=== PATIENT | male | born 1935 | race Caucasian/White ===

== ENCOUNTER 2017-08-17 13:49 | Inpatient (IN) | payer MEDICARE ==
[~2017-08-17] VITALS: Ht 175.3 cm; Wt 70.1 kg
[2017-08-17 14:52] LABS: BASOPHILS 0.4 % (0-2); EOSINOPHILS 3.7 % (0-7); HEMATOCRIT 38.7 % (42.0-54.0); HEMOGLOBIN 13.2 g/dL (13.5-17.5); IMMATURE GRANULOCYTES 0.4 % (0-5); LYMPHOCYTES 14.4 % (15-50); MCH 32.5 pg (26.0-34.0); MCHC 34.1 g/dL (31.0-37.0); MCV 95.3 fL (80.0-100.0); MEAN PLATELET VOLUME 9.8 fL (7.4-10.4); MONOCYTES 10.1 % (2-11); PLATELET COUNT 128 10x3/uL (130-400); RBC 4.06 10x6/uL (4.20-6.10); RDW 13.2 % (11.5-14.5)
[2017-08-17 15:10] LABS: ALBUMIN 3.3 g/dL (3.4-5.0); ANION GAP 9.1 mmol/L (8-16); BILIRUBIN - TOTAL 0.44 mg/dL (0.2-1.3); CALCIUM 8.8 mg/dL (8.5-10.1); CARBON DIOXIDE 31.7 mmol/L (21.0-32.0); CREATININE - SERUM 1.8 mg/dL (0.6-1.3); POTASSIUM - SERUM 3.8 mmol/L (3.5-5.1); PROTEIN - SERUM 6.2 g/dL (6.4-8.2)
[2017-08-17 15:23] LABS: INR 0.98 (0.85-1.17); PROTIME 12.6 SECONDS (11.6-15.0)
[2017-08-17 15:29] LABS: APPEARANCE CLEAR (CLEAR); BILIRUBIN NEGATIVE (NEGATIVE); COLOR YELLOW (YELLOW); GLUCOSE NEGATIVE (NEGATIVE); KETONE NEGATIVE (NEGATIVE); NITRITE NEGATIVE (NEGATIVE); PROTEIN NEGATIVE (NEGATIVE); SPECIFIC GRAVITY 1.015 (1.005-1.020); UROBILINOGEN NORMAL (NORMAL)
[2017-08-17 15:37] LABS: CREATINE KINASE 56 UL (21-232); MAGNESIUM - SERUM 2.3 mg/dL (1.8-2.4); PRO BNP 533 pg/mL (0-450)
[2017-08-17 15:39] LABS: TROPONIN-I < 0.017 ng/mL (0.000-0.060)
[2017-08-17 15:39] LABS: UDS - AMPHET NEGATIVE QUAL (NEGATIVE); UDS - BARB NEGATIVE QUAL (NEGATIVE); UDS - BENZO NEGATIVE QUAL (NEGATIVE); UDS - COCAINE NEGATIVE QUAL (NEGATIVE); UDS - OPIATE NEGATIVE QUAL (NEGATIVE); UDS - PCP NEGATIVE QUAL (NEGATIVE); UDS - THC NEGATIVE QUAL (NEGATIVE)
[2017-08-17 23:48] VITALS: BP 163/77; BMI 22.2
[2017-08-18] MEDS ORDERED: NAMZARIC 7 MG-1 EACH PO (00:10)
[2017-08-18] MEDS ORDERED: ATIVAN0.5 MG PO (00:13)
[2017-08-18] MEDS ORDERED: REMERON15 MG PO (00:13)
[2017-08-18] MEDS ORDERED: ASPIRIN81 MG PO (00:13)
[2017-08-18] MEDS ORDERED: BETAPACE 120 M120 MG PO (00:13)
[2017-08-18] MEDS ORDERED: BENICAR HCT 20-1 TA1 PO (00:14)
[2017-08-18 04:00] VITALS: BP 176/79
[2017-08-18 05:24] LABS: BASOPHILS 0.2 % (0-2); EOSINOPHILS 4.5 % (0-7); HEMATOCRIT 33.4 % (42.0-54.0); HEMOGLOBIN 11.4 g/dL (13.5-17.5); IMMATURE GRANULOCYTES 0.2 % (0-5); LYMPHOCYTES 18.8 % (15-50); MCH 32.2 pg (26.0-34.0); MCHC 34.1 g/dL (31.0-37.0); MCV 94.4 fL (80.0-100.0); MEAN PLATELET VOLUME 9.9 fL (7.4-10.4); MONOCYTES 9.8 % (2-11); NEUTROPHILS 66.5 % (40-80); PLATELET COUNT 109 10x3/uL (130-400); RBC 3.54 10x6/uL (4.20-6.10); RDW 13.1 % (11.5-14.5); WBC 5.3 10x3/uL (4.8-10.8)
[2017-08-18 06:05] LABS: ALBUMIN 2.7 g/dL (3.4-5.0); ANION GAP 9.7 mmol/L (8-16); BILIRUBIN - TOTAL 0.61 mg/dL (0.2-1.3); CALCIUM 8.1 mg/dL (8.5-10.1); CARBON DIOXIDE 27.5 mmol/L (21.0-32.0); CREATININE - SERUM 1.5 mg/dL (0.6-1.3); PROTEIN - SERUM 5.1 g/dL (6.4-8.2)
[2017-08-18 06:08] LABS: POTASSIUM - SERUM 3.2 mmol/L (3.5-5.1)
[2017-08-18 08:16] VITALS: BP 107/68
[2017-08-18 12:01] VITALS: Ht 175.3 cm; Wt 70.1 kg
[2017-08-18 12:25] VITALS: BP 163/78
[2017-08-18 16:21] VITALS: BP 125/63
[2017-08-18 20:00] VITALS: BP 97/60
[2017-08-19] VITALS: BP 167/85
[2017-08-19 04:00] VITALS: BP 182/87
[2017-08-19 06:17] LABS: HEMATOCRIT 33.1 % (42.0-54.0); HEMOGLOBIN 11.4 g/dL (13.5-17.5); LYMPHOCYTES 14.4 % (15-50); MCH 31.8 pg (26.0-34.0); MCHC 34.4 g/dL (31.0-37.0); MCV 92.5 fL (80.0-100.0); MEAN PLATELET VOLUME 9.1 fL (7.4-10.4); NEUTROPHILS 75.1 % (40-80); PLATELET COUNT 102 10x3/uL (130-400); RBC 3.58 10x6/uL (4.20-6.10); RDW 13.1 % (11.5-14.5); WBC 5.6 10x3/uL (4.8-10.8)
[2017-08-19 06:41] LABS: ALBUMIN 2.6 g/dL (3.4-5.0); ANION GAP 9.1 mmol/L (8-16); BILIRUBIN - TOTAL 0.6 mg/dL (0.2-1.3); CALCIUM 7.9 mg/dL (8.5-10.1); CARBON DIOXIDE 28.6 mmol/L (21.0-32.0); CREATININE - SERUM 1.4 mg/dL (0.6-1.3); PROTEIN - SERUM 5.2 g/dL (6.4-8.2)
[2017-08-19 06:42] LABS: POTASSIUM - SERUM 3.7 mmol/L (3.5-5.1)
[2017-08-19 08:05] VITALS: BP 150/81
[2017-08-19 12:33] VITALS: BP 169/65
[2017-08-19 15:59] VITALS: BP 145/67
[2017-08-19 20:00] VITALS: BP 152/76
[2017-08-20] VITALS: BP 156/83
[2017-08-20 04:00] VITALS: BP 160/86
[2017-08-20 05:10] LABS: BASOPHILS 0.2 % (0-2); EOSINOPHILS 4.7 % (0-7); HEMATOCRIT 35.8 % (42.0-54.0); HEMOGLOBIN 11.9 g/dL (13.5-17.5); IMMATURE GRANULOCYTES 0.2 % (0-5); LYMPHOCYTES 14.5 % (15-50); MCH 31.5 pg (26.0-34.0); MCHC 33.2 g/dL (31.0-37.0); MONOCYTES 10.4 % (2-11); PLATELET COUNT 106 10x3/uL (130-400); RBC 3.78 10x6/uL (4.20-6.10); RDW 13.1 % (11.5-14.5)
[2017-08-20 05:16] LABS: MCV 94.7 fL (80.0-100.0)
[2017-08-20 05:33] LABS: ALBUMIN 2.8 g/dL (3.4-5.0); ANION GAP 11.5 mmol/L (8-16); BILIRUBIN - TOTAL 0.67 mg/dL (0.2-1.3); CALCIUM 8.5 mg/dL (8.5-10.1); CARBON DIOXIDE 27.1 mmol/L (21.0-32.0); CREATININE - SERUM 1.4 mg/dL (0.6-1.3); POTASSIUM - SERUM 3.6 mmol/L (3.5-5.1); PROTEIN - SERUM 5.8 g/dL (6.4-8.2)
[2017-08-20 07:55] VITALS: BP 150/70
[2017-08-20] MEDS ORDERED: LEVAQUIN500 MG PO ×2 (10:39)
[2017-08-20] MEDS ORDERED: FLORAJEN3 CAPS460 MG PO (10:39)
[2017-08-20] MEDS ORDERED: Levaquin PREMIX IV (11:49)
== END 2017-08-20 16:13 | DRG 682 ==
LOC: D.ER 13:49 → D.MS 18:23 → OBSVTIME 08-18 15:52 → D.MS 08-18 15:53
PROVIDERS: Emergency Medicine; Family Medicine; Nurse Practitioner Family
DX: N17.9 Acute kidney failure, unspecified (principal); G93.41 Metabolic encephalopathy; G62.9 Polyneuropathy, unspecified; R53.1 Weakness; F03.90 Unspecified dementia, unspecified severity, without behavioral disturbance, psychotic disturbance, mood disturbance, and anxiety; E87.6 Hypokalemia; F10.20 Alcohol dependence, uncomplicated; Z87.891 Personal history of nicotine dependence; E86.0 Dehydration

== ENCOUNTER 2017-08-20 17:28 | Inpatient (IN) | payer MEDICARE ==
[~2017-08-20] VITALS: Ht 175.3 cm; Wt 71.2 kg
--- NOTE | ~2017-08-20 | RHP ---
PATIENT: LEIA JONES MEDICAL RECORD: [id number] ACCOUNT: [id number] LOCATION:[facility] [id number] : 31 ADMISSION DATE: 08/20/17 REHABILITATION HISTORY AND PHYSICAL EXAMINATION POST ADMISSION PHYSICIAN EXAMINATION DATE OF ADMISSION: 08/20/2017. ADMITTING DIAGNOSES: Metabolic encephalopathy. HISTORY OF PRESENT ILLNESS: The patient is admitted to the inpatient rehab with metabolic encephalopathy. His PCP is Dr. Palomino. He presented to the ED with weakness, altered level of consciousness, and confusion. This started on 08/15/2017 and progressively worsened. His significant other, apparently helps assist him with activities at home. He had really denied any complaints of shortness of breath, chest pain, or any other things. PAST MEDICAL HISTORY: Includes neuropathy, coronary artery bypass grafting, diverticulitis, dementia, and former tobacco use. He apparently has not been using any tobacco lately, but does occasionally have some alcohol. He was admitted and found to have a UTI, positive for Klebsiella pneumoniae. He is currently on 2 liters of nasal cannula. Prior to his illness, he was living independent with his significant other. He was set up for min assist with mobility and ADLs. Currently, he is max assist with mobility, moderate assist with ADLs. He will require intensive inpatient therapy to get back to his independence and hopefully return home with his significant other. COMORBIDITIES: Include kidney injury, generalized weakness, hypokalemia, UTI with Klebsiella, dementia, neuropathy, history of coronary artery bypass grafting, some alcohol dependence in the past, and former tobacco use. PAST MEDICAL HISTORY: Significant for neuropathy, coronary artery disease, diverticulitis, dementia. PAST SURGICAL HISTORY: Includes neck surgery times 2. ALLERGIES: PENICILLIN. CURRENT MEDICATIONS: Include Levaquin 500 mg q.24 hours, hydrochlorothiazide 12.5 mg daily, Benicar 20 mg daily, Remeron 15 mg daily, Aricept 10 mg daily. He is on aspirin chewable 81 mg daily, sotalol 120 mg b.i.d., Namenda 10 mg b.i.d., Ativan 0.5 mg q.h.s., and polyethylene glycol 17 grams in 8 ounces of water daily. HABITS: Does have a history of tobacco use in the past, but not current. Does have a history of alcohol use. FAMILY HISTORY: Noncontributory. SOCIAL HISTORY: The patient [place] REVIEW OF SYSTEMS: GENERAL: Does complain of some weakness. HEENT: He denies cold, cough, or congestion. HISTORY AND PHYSICAL [id number] LEIA JONES CARDIOVASCULAR: Denies chest pain. PHYSICAL EXAMINATION: VITAL SIGNS: Stable, afebrile. GENERAL: An elderly gentleman in no acute distress, alert upon exam. HEENT: Normocephalic and atraumatic. Mucosa moist. NECK: Supple. No lymphadenopathy. LUNGS: Clear. HEART: Regular rate and rhythm. ABDOMEN: Benign. EXTREMITIES: No clubbing, cyanosis or edema. NEUROLOGIC: Just slow to mentate. LABORATORY DATA: His white count is 5.7, H&H of 11.5 and 33.6, and platelet count was noted to be 100. His sodium is 143, potassium 3.3, BUN and creatinine of 27 and 1.4, and blood sugar is noted to be 97. ASSESSMENT: This is an 82-year-old gentleman admitted to the rehab with a working diagnosis of metabolic encephalopathy. The patient has potential to make improvement. We instituted the following multidisciplinary therapies including to, but not limited to physical, occupational, respiratory, speech, nutritional services, prosthetics and orthotics. Given his complex condition and risk for more complications, rehabilitation services cannot be provided at a low level of care such as a longterm facility. PLAN: 1. Admit to [facility] rehab for intensive inpatient therapy to include the following disciplines: A. Physical therapy to improve gait, all transfer skills and bed mobility to a modified independent level. B. Occupational therapy to improve activities of daily living to a modified independent level. C. Case management to assist with discharge planning and placement options. D. Nutrition to assist with nutritional needs. E. Rehabilitation nursing to assist in monitoring the patient's underlying medical conditions and to assist with any type of bowel or bladder management. 2. The patient's current medication and medical care will be continued. 3. The patient will be placed on standard fall precautions. 4. The patient's estimated length of stay is approximately 7-10 days. 5. We will go ahead and replace his potassium and follow his levels closely. We will keep his significant other up to date and we will follow up on Wednesday a.m. TRANSINT:[id number] Voice Confirmation ID: [id number] DOCUMENT ID: [id number] MEHRDAD notes whether there has been none or any medical/functional change since admission: - No change since pre-admission screen. MEHRDAD attests patient continues to be appropriate for IRF: - Continues to be appropriated for IRF. 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
[~2017-08-20 17:28] MED LIST: ASPIRIN81 MG PO; ATIVAN0.5 MG PO; BENICAR HCT 20-1 TA1 PO; BETAPACE 120 M120 MG PO; FLORAJEN3 CAPS460 MG PO; LEVAQUIN500 MG PO; Levaquin PREMIX IV; NAMZARIC 7 MG-1 EACH PO; REMERON15 MG PO
[2017-08-20 17:55] VITALS: BP 185/91; BMI 23.2
[2017-08-20 19:15] VITALS: BP 166/85
[2017-08-21 06:18] LABS: BASOPHILS 0.3 % (0-2); EOSINOPHILS 4.7 % (0-7); HEMATOCRIT 33.6 % (42.0-54.0); HEMOGLOBIN 11.5 g/dL (13.5-17.5); IMMATURE GRANULOCYTES 0.2 % (0-5); LYMPHOCYTES 14.3 % (15-50); MCH 31.8 pg (26.0-34.0); MCHC 34.2 g/dL (31.0-37.0); MCV 92.8 fL (80.0-100.0); MEAN PLATELET VOLUME 9.6 fL (7.4-10.4); MONOCYTES 11.1 % (2-11); NEUTROPHILS 69.4 % (40-80); PLATELET COUNT 100 10x3/uL (130-400); RBC 3.62 10x6/uL (4.20-6.10); WBC 5.7 10x3/uL (4.8-10.8)
[2017-08-21 06:22] LABS: ANION GAP 9.8 mmol/L (8-16); CALCIUM 8.6 mg/dL (8.5-10.1); CARBON DIOXIDE 29.5 mmol/L (21.0-32.0); CREATININE - SERUM 1.4 mg/dL (0.6-1.3); POTASSIUM - SERUM 3.3 mmol/L (3.5-5.1)
[2017-08-21 08:00] VITALS: BP 143/74
[2017-08-21 22:40] VITALS: BP 136/73
[2017-08-22 08:34] VITALS: BP 148/75
[2017-08-22 22:59] VITALS: BP 123/60
[2017-08-23 06:35] LABS: BASOPHILS 0.2 % (0-2); HEMATOCRIT 34.4 % (42.0-54.0); HEMOGLOBIN 11.6 g/dL (13.5-17.5); IMMATURE GRANULOCYTES 0.3 % (0-5); LYMPHOCYTES 18.7 % (15-50); MCH 31.4 pg (26.0-34.0); MCHC 33.7 g/dL (31.0-37.0); MEAN PLATELET VOLUME 9.4 fL (7.4-10.4); MONOCYTES 10.7 % (2-11); NEUTROPHILS 64.1 % (40-80); PLATELET COUNT 103 10x3/uL (130-400); WBC 5.8 10x3/uL (4.8-10.8)
[2017-08-23 06:49] LABS: ANION GAP 7.5 mmol/L (8-16); CALCIUM 8.6 mg/dL (8.5-10.1); CREATININE - SERUM 1.6 mg/dL (0.6-1.3); POTASSIUM - SERUM 3.5 mmol/L (3.5-5.1)
[2017-08-23 07:40] VITALS: BP 170/81
[2017-08-23 20:48] VITALS: BP 179/68
[2017-08-24 08:54] VITALS: BP 135/58
[2017-08-24 19:15] VITALS: BP 133/68
[2017-08-25 06:40] LABS: BASOPHILS 0.3 % (0-2); EOSINOPHILS 4.8 % (0-7); HEMATOCRIT 34.2 % (42.0-54.0); HEMOGLOBIN 11.7 g/dL (13.5-17.5); IMMATURE GRANULOCYTES 0.5 % (0-5); MCH 31.7 pg (26.0-34.0); MCHC 34.2 g/dL (31.0-37.0); MCV 92.7 fL (80.0-100.0); MEAN PLATELET VOLUME 9.9 fL (7.4-10.4); MONOCYTES 10.4 % (2-11); PLATELET COUNT 117 10x3/uL (130-400); RBC 3.69 10x6/uL (4.20-6.10); RDW 13.2 % (11.5-14.5); WBC 6.4 10x3/uL (4.8-10.8)
[2017-08-25 07:31] LABS: ANION GAP 11.9 mmol/L (8-16); CALCIUM 8.6 mg/dL (8.5-10.1); CARBON DIOXIDE 27.6 mmol/L (21.0-32.0); CREATININE - SERUM 1.7 mg/dL (0.6-1.3); POTASSIUM - SERUM 3.5 mmol/L (3.5-5.1); THYROID STIMULATING HORMONE 2.29 uIU/mL (0.36-3.74)
[2017-08-25 07:41] VITALS: BP 131/68
[2017-08-25 10:32] VITALS: Ht 175.3 cm; Wt 71.2 kg
[2017-08-25 20:00] VITALS: BP 98/50
[2017-08-26 08:19] VITALS: BP 113/57
[2017-08-26 19:45] VITALS: BP 100/79
[2017-08-27 05:57] LABS: BASOPHILS 0.1 % (0-2); EOSINOPHILS 4.9 % (0-7); HEMATOCRIT 34.9 % (42.0-54.0); HEMOGLOBIN 11.7 g/dL (13.5-17.5); IMMATURE GRANULOCYTES 0.5 % (0-5); LYMPHOCYTES 11.3 % (15-50); MCH 31.4 pg (26.0-34.0); MCHC 33.5 g/dL (31.0-37.0); MCV 93.6 fL (80.0-100.0); MEAN PLATELET VOLUME 9.9 fL (7.4-10.4); NEUTROPHILS 74.2 % (40-80); PLATELET COUNT 116 10x3/uL (130-400); RBC 3.73 10x6/uL (4.20-6.10); RDW 13.3 % (11.5-14.5); WBC 7.9 10x3/uL (4.8-10.8)
[2017-08-27 06:37] LABS: ANION GAP 10.6 mmol/L (8-16); CALCIUM 8.4 mg/dL (8.5-10.1); CARBON DIOXIDE 29.8 mmol/L (21.0-32.0); POTASSIUM - SERUM 3.4 mmol/L (3.5-5.1)
[2017-08-27 06:39] LABS: CREATININE - SERUM 2.5 mg/dL (0.6-1.3)
[2017-08-27 08:02] VITALS: BP 118/64
[2017-08-27 19:00] VITALS: BP 133/66
[2017-08-28 08:51] VITALS: BP 100/72
[2017-08-28 20:00] VITALS: BP 158/88
[2017-08-29 08:08] VITALS: BP 139/64
[2017-08-29 21:22] VITALS: BP 131/62
[2017-08-30 06:54] LABS: ANION GAP 10.8 mmol/L (8-16); CALCIUM 8.3 mg/dL (8.5-10.1); CARBON DIOXIDE 26.3 mmol/L (21.0-32.0); CREATININE - SERUM 1.7 mg/dL (0.6-1.3); POTASSIUM - SERUM 3.1 mmol/L (3.5-5.1)
[2017-08-30 06:58] LABS: BASOPHILS 0.3 % (0-2); HEMOGLOBIN 12.1 g/dL (13.5-17.5); IMMATURE GRANULOCYTES 0.5 % (0-5); LYMPHOCYTES 12.3 % (15-50); MCH 31.6 pg (26.0-34.0); MCHC 34.6 g/dL (31.0-37.0); MCV 91.4 fL (80.0-100.0); MEAN PLATELET VOLUME 9.7 fL (7.4-10.4); MONOCYTES 10.7 % (2-11); NEUTROPHILS 71.2 % (40-80); PLATELET COUNT 121 10x3/uL (130-400); RBC 3.83 10x6/uL (4.20-6.10); RDW 12.8 % (11.5-14.5); WBC 6.3 10x3/uL (4.8-10.8)
[2017-08-30 07:45] VITALS: BP 146/72
[2017-08-30 22:30] VITALS: BP 119/71
[2017-08-31 08:12] VITALS: BP 113/56
[2017-09-01 00:41] VITALS: BP 115/66
[2017-09-01 07:19] LABS: BASOPHILS 0.3 % (0-2); EOSINOPHILS 3.1 % (0-7); HEMATOCRIT 32.8 % (42.0-54.0); HEMOGLOBIN 11.2 g/dL (13.5-17.5); IMMATURE GRANULOCYTES 0.9 % (0-5); LYMPHOCYTES 12.6 % (15-50); MCH 31.5 pg (26.0-34.0); MCHC 34.1 g/dL (31.0-37.0); MCV 92.1 fL (80.0-100.0); MEAN PLATELET VOLUME 9.7 fL (7.4-10.4); MONOCYTES 13.2 % (2-11); NEUTROPHILS 69.9 % (40-80); PLATELET COUNT 124 10x3/uL (130-400); RBC 3.56 10x6/uL (4.20-6.10); WBC 6.7 10x3/uL (4.8-10.8)
[2017-09-01 07:44] LABS: ANION GAP 11.6 mmol/L (8-16); CALCIUM 8.1 mg/dL (8.5-10.1); CARBON DIOXIDE 26.7 mmol/L (21.0-32.0); CREATININE - SERUM 1.9 mg/dL (0.6-1.3); POTASSIUM - SERUM 3.3 mmol/L (3.5-5.1)
[2017-09-01 09:16] VITALS: BP 128/68
[2017-09-01 20:20] VITALS: BP 127/62
[2017-09-02 07:58] VITALS: BP 168/85
== END 2017-09-02 13:40 | disposition home or self-care (01) | DRG 71 ==
LOC: D.REHAB 17:28
PROVIDERS: Emergency Medicine
DX: G93.41 Metabolic encephalopathy (principal); N17.9 Acute kidney failure, unspecified; N39.0 Urinary tract infection, site not specified; A04.72 Enterocolitis due to Clostridium difficile, not specified as recurrent; R53.1 Weakness; E87.6 Hypokalemia; F03.90 Unspecified dementia, unspecified severity, without behavioral disturbance, psychotic disturbance, mood disturbance, and anxiety; G62.9 Polyneuropathy, unspecified; Z95.1 Presence of aortocoronary bypass graft; Z87.891 Personal history of nicotine dependence; B96.1 Klebsiella pneumoniae [K. pneumoniae] as the cause of diseases classified elsewhere; F10.20 Alcohol dependence, uncomplicated